=== PATIENT | female | born 1980 | race American Indian/Alaskan Native ===

== ENCOUNTER 2016-09-25 19:10 | Emergency (ER) | payer OTHER ==
[2016-09-25 19:52] VITALS: BP 134/91
[2016-09-25 20:16] LABS: Bacteria,Urine 1+ /HPF (Negative); Bilirubin,Urine NEG (Negative); Blood,Urine MOD (Negative); Ketones,Urine TR mg/dL (Negative); Leukocyte Esterase,Urine MOD (Negative); Mucus,Urine 1+ /HPF; Nitrite,Urine NEG (Negative); Urobilinogen,Urine < 2.0 mg/dL (<2.0)
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
== END 2016-09-25 21:12 | disposition home or self-care (01) ==
LOC: ED 19:10
DX: N30.01 Acute cystitis with hematuria (principal); F12.90 Cannabis use, unspecified, uncomplicated
CPT/HCPCS: 81001; 81025; 99283

== ENCOUNTER 2017-02-07 23:09 | Emergency (ER) | payer SELFPAY ==
[2017-02-08 00:11] VITALS: BP 127/83
[2017-02-08] MEDS ORDERED: DILAUDID IM ONE (01:15)
[2017-02-08] MEDS ORDERED: MOTRIN PO ONE (01:15)
--- NOTE | 2017-02-08 01:18 | Emergency Department Report ---
- General Chief complaint: Skin/Abscess/Foreign Body Stated complaint: BOIL RIGHT SIDE OF BREAST Time Seen by Provider: 02/08/17 01:11 Source: patient Mode of arrival: Ambulatory Limitations: No Limitations - History of Present Illness Initial comments: 36 yo transgender female with h/o right chest wall abscess her today with c/o right chest wall abscess of 2 days. it is painful and gettting bigger very quickly. she had thsi same abscess drained over a year ago, but a small knot was left and thsi has now become an abscess MD complaint: abscess/boil -: Gradual, year(s) (1.5YRS) Tetanus Up to Date: no Location: chest (NEST TO RIGHT BREAST) Severity scale (0 -10): 7 Consistency: constant Improves with: none Worsens with: palpation, movement Context: other (PRIOR INCOMPLETE DRAINED ABSCESS IN PAST) Associated symptoms: denies other symptoms - Related Data Previous Rx's Medication Instructions Recorded Last Taken Type Phenazopyridine [Pyridium] 200 mg PO BID #8 tab 09/25/16 Unknown Rx Mupirocin Calcium [Bactroban Nasal 1 gm NS BID #1 tube 02/08/17 Unknown Rx 2%] Sulfamethoxazole/Trimethoprim 1 each PO BID #14 tablet 02/08/17 Unknown Rx [Bactrim DS TAB] oxyCODONE /ACETAMINOPHEN [Percocet 2 tab PO Q6HR PRN #14 tablet 02/08/17 Unknown Rx 5/325] Allergies Allergy/AdvReac Type Severity Reaction Status Date / Time No Known Allergies Allergy Verified 02/08/17 03:08 Abscess Boil HPI - HPI Chief Complaint: Skin/Abscess/Foreign Body Stated Complaint: BOIL RIGHT SIDE OF BREAST Time Seen by Provider: 02/08/17 01:11 Location: Chest History: Yes Pain, Yes Previous History, No Fever, No Purulent Drainage, No Numbness, No Foreign Body, No Insect Bite Home Medications: Previous Rx's Medication Instructions Recorded Last Taken Type Phenazopyridine [Pyridium] 200 mg PO BID #8 tab 09/25/16 Unknown Rx Mupirocin Calcium [Bactroban Nasal 1 gm NS BID #1 tube 02/08/17 Unknown Rx 2%] Sulfamethoxazole/Trimethoprim 1 each PO BID #14 tablet 02/08/17 Unknown Rx [Bactrim DS TAB] oxyCODONE /ACETAMINOPHEN [Percocet 2 tab PO Q6HR PRN #14 tablet 02/08/17 Unknown Rx 5/325] Allergies/Adverse Reactions: Allergies Allergy/AdvReac Type Severity Reaction Status Date / Time No Known Allergies Allergy Verified 02/08/17 03:08 ED Review of Systems ROS: Stated complaint: BOIL RIGHT SIDE OF BREAST Other details as noted in HPI Constitutional: denies: chills, fever Eyes: denies: eye pain, eye discharge, vision change ENT: denies: ear pain, throat pain Respiratory: denies: cough, shortness of breath, wheezing Cardiovascular: denies: chest pain, palpitations Endocrine: no symptoms reported Gastrointestinal: denies: abdominal pain, nausea, diarrhea Genitourinary: denies: urgency, dysuria, discharge Musculoskeletal: denies: back pain, joint swelling, arthralgia Skin: denies: rash, lesions Neurological: denies: headache, weakness, paresthesias Psychiatric: denies: anxiety, depression Hematological/Lymphatic: denies: easy bleeding, easy bruising ED Past Medical Hx - Past Medical History Previous Medical History?: No - Surgical History Past Surgical History?: No - Social History Smoking Status: Never Smoker Substance Use Type: None - Medications Home Medications: Home Medications Medication Instructions Recorded Confirmed Last Taken Type Phenazopyridine [Pyridium] 200 mg PO BID #8 tab 09/25/16 Unknown Rx Mupirocin Calcium [Bactroban Nasal 1 gm NS BID #1 tube 02/08/17 Unknown Rx 2%] Sulfamethoxazole/Trimethoprim 1 each PO BID #14 tablet 02/08/17 Unknown Rx [Bactrim DS TAB] oxyCODONE /ACETAMINOPHEN [Percocet 2 tab PO Q6HR PRN #14 tablet 02/08/17 Unknown Rx 5/325] ED Physical Exam - General Limitations: No Limitations General appearance: alert, in no apparent distress - Head Head exam: Present: atraumatic, normocephalic - Eye Eye exam: Present: normal appearance - ENT ENT exam: Present: mucous membranes moist - Neck Neck exam: Present: normal inspection - Respiratory Respiratory exam: Present: normal lung sounds bilaterally, chest wall tenderness (ABSCESS NEXT TO RIGHT BREAST,TENDERMERYTHEMA). Absent: respiratory distress - Cardiovascular Cardiovascular Exam: Present: regular rate, normal rhythm. Absent: systolic murmur, diastolic murmur, rubs, gallop - GI/Abdominal GI/Abdominal exam: Present: soft, normal bowel sounds - Extremities Exam Extremities exam: Present: normal inspection - Back Exam Back exam: Present: normal inspection - Neurological Exam Neurological exam: Present: alert, oriented X3 - Psychiatric Psychiatric exam: Present: normal affect, normal mood - Skin Skin exam: Present: warm, dry, intact, normal color. Absent: rash ED Course Vital Signs 02/08/17 00:09 Temperature 98.7 F Pulse Rate 76 Respiratory 18 Rate Blood Pressure 127/83 O2 Sat by Pulse 98 Oximetry ED Medical Decision Making - Medical Decision Making home with bactrim , bactroban nasal and supplies to pack abscess at home herself. she will return in 2 days for wound check Critical care attestation.: If time is entered above; I have spent that time in minutes in the direct care of this critically ill patient, excluding procedure time. ED Disposition Clinical Impression: Abscess, Abscess of chest wall Disposition: DC-01 TO HOME OR SELFCARE Is pt being admited?: No Does the pt Need Aspirin: No Condition: Stable Instructions: Abscess Incision and Drainage (ED), Abscess (ED), Methicillin Resistant Staphylococcus Aureus (ED) Additional Instructions: wound check in two days Prescriptions: Mupirocin Calcium [Bactroban Nasal 2%] 1 gm NS BID #1 tube oxyCODONE /ACETAMINOPHEN [Percocet 5/325] 2 tab PO Q6HR PRN #14 tablet PRN Reason: Pain Sulfamethoxazole/Trimethoprim [Bactrim DS TAB] 1 each PO BID #14 tablet Referrals: PRIMARY CARE, [Primary Care Provider] - 3-5 Days
[2017-02-08] MEDS ORDERED: XYLOCAINE 2% INFILTRATI ONE (03:05)
[2017-02-08] MEDS ORDERED: TENIVAC IM ONE (03:31)
[2017-02-08] MEDS ORDERED: BOOSTRIX IM ONE (03:42)
[2017-02-08] MEDS ORDERED: ZOFRAN ODT ONE (03:45)
[2017-02-08] MEDS ORDERED: XYLOCAINE 1% 20 mL INFILTRATI ONE (04:48)
[2017-02-08] MEDS ORDERED: ZOFRAN ODT PO ONE (04:49)
== END 2017-02-08 03:45 | disposition home or self-care (01) ==
LOC: ED 02-08 00:27
DX: L02.213 Cutaneous abscess of chest wall (principal)
CPT/HCPCS: 10060; 90715; 96372; 99282; J1170; 90714; Q0162